=== PATIENT | male | born 1995 | race Caucasian/White ===

== ENCOUNTER → 2016-05-03 | Outpatient (CLI) | payer BC ==
[~2016-05-03] MED LIST: METHACHOLINE KIT (J7674) INH ONE
== END ==
LOC: M CARPUL 03-22 08:00
PROVIDERS: ATTEND Nurse Practitioner Adult Health
DX: R05 Cough (principal)

== ENCOUNTER → 2017-01-08 | Outpatient (REF) | payer BC ==
[2017-01-08 13:10] LABS: MEAN CORPUSCULAR HEMOGLOBIN 30.6 pg (27.0-33.0); MEAN CORPUSCULAR HGB CONC 35.8 g/dl (32.0-36.5); MEAN CORPUSCULAR VOLUME 85.4 fl (80.0-96.0); RED CELL DISTRIBUTION WIDTH 12.1 % (11.5-14.5); WHITE BLOOD COUNT 6.9 K/mm3 (4.0-10.0)
[2017-01-08 13:29] LABS: ALBUMIN 4.2 GM/DL (3.2-5.2); ALBUMIN/GLOBULIN RATIO 1.24 (1.00-1.93); ALKALINE PHOSPHATASE 76 U/L (45-117); ALT/SGPT 53 U/L (12-78); ANION GAP 9 MEQ/L (8-16); AST/SGOT 29 U/L (15-37); BILIRUBIN,TOTAL 0.6 MG/DL (0.2-1.0); BLOOD UREA NITROGEN 15 MG/DL (7-18); CALCIUM LEVEL 9.6 MG/DL (8.5-10.1); CARBON DIOXIDE LEVEL 27 MEQ/L (21-32); CHLORIDE LEVEL 107 MEQ/L (98-107); CREATININE FOR GFR 0.96 MG/DL (0.70-1.30); FREE T4 0.77 NG/DL (0.78-1.33); GLUCOSE, FASTING 75 MG/DL (70-105); POTASSIUM SERUM 4.7 MEQ/L (3.5-5.1); SODIUM LEVEL 143 MEQ/L (136-145); TOTAL PROTEIN 7.6 GM/DL (6.4-8.2)
[2017-01-10 00:06] LABS: Lyme Disease IgG/IgM Antibodie <0.91 ISR (0.00-0.90); Lyme Disease IgM Ab Quantitati <0.80 index (0.00-0.79)
== END ==
LOC: M SFHCPLAZ 11:40
PROVIDERS: ATTEND Nurse Practitioner Adult Health
DX: Z00.00 Encounter for general adult medical examination without abnormal findings (principal); M25.50 Pain in unspecified joint

== ENCOUNTER 2019-09-19 16:03 | Emergency (ER) | payer OTHER, BC ==
[~2019-09-19] VITALS: Ht 180.3 cm; Wt 122.7 kg
[2019-09-19 16:04] VITALS: BP 152/84
[2019-09-19] MEDS ORDERED: BOOSTRIX/ADACEL VACCINE (DIPHTH/PERTUSS/ACELL/TETANUS) 0.5ML SYR IM ONE (17:00)
[2019-09-19] MEDS ORDERED: DERMABOND TOPICAL SKIN ADHESIVE TOP ONE (18:15)
== END 2019-09-19 18:08 | disposition home or self-care (01) ==
LOC: M ED 16:03
DX: S01.112A Laceration without foreign body of left eyelid and periocular area, initial encounter (principal); W22.8XXA Striking against or struck by other objects, initial encounter; Y92.89 Other specified places as the place of occurrence of the external cause; Y93.89 Activity, other specified; Y99.0 Civilian activity done for income or pay; F17.210 Nicotine dependence, cigarettes, uncomplicated; Z23 Encounter for immunization

== ENCOUNTER → 2020-12-23 | Outpatient (CLI) | payer BC ==
[~2020-12-23] MED LIST changes: +AUGM875T28 PO; +AZIT-12 PO; +KETO10TAB PO; -METHACHOLINE KIT (J7674) INH ONE; +PRED20TA PO
[2020-12-23 13:59] LABS: BASO # 0.1 10^3/uL (0.0-0.2); BASO % 0.4 % (0.0-1.0); EOS # 0.1 10^3/uL (0.0-0.5); EOS % 1.1 % (0.0-3.0); HEMATOCRIT 49.8 % (42.0-52.0); HEMOGLOBIN 16.9 g/dl (13.5-17.5); LYMPH # 2.9 10^3/uL (1.5-5.0); LYMPH % 25.5 % (24.0-44.0); MEAN CORPUSCULAR HEMOGLOBIN 29.2 pg (27.0-33.0); MEAN CORPUSCULAR HGB CONC 33.9 g/dl (32.0-36.5); MONO # 1.1 10^3/uL (0.0-0.8); MONO % 9.8 % (2.0-8.0); NEUTROPHILS # 7.2 10^3/uL (1.5-8.5); NEUTROPHILS % 62.8 % (36.0-66.0); PLATELET COUNT, AUTOMATED 298 10^3/uL (150-450); RED BLOOD COUNT 5.79 10^6/uL (4.30-6.10); WHITE BLOOD COUNT 11.4 10^3/uL (4.0-10.0)
[2020-12-23 14:24] LABS: ALBUMIN 4.1 GM/DL (3.2-5.2); ALT/SGPT 56 U/L (12-78); BILIRUBIN,TOTAL 0.8 MG/DL (0.2-1.0); BLOOD UREA NITROGEN 11 MG/DL (7-18); CALCIUM LEVEL 9.7 MG/DL (8.5-10.1); CARBON DIOXIDE LEVEL 30 MEQ/L (21-32); CHLORIDE LEVEL 106 MEQ/L (98-107); CREATININE FOR GFR 0.99 MG/DL (0.70-1.30); GLOMERULAR FILTRATION RATE > 60.0 (>60); GLUCOSE, FASTING 92 MG/DL (70-100); POTASSIUM SERUM 4.5 MEQ/L (3.5-5.1); SODIUM LEVEL 140 MEQ/L (136-145); TOTAL PROTEIN 7.8 GM/DL (6.4-8.2)
--- NOTE | 2020-12-23 19:10 | REP ---
INDICATION: CHEST PAIN ON BREATHING. COMPARISON: Comparison chest x-ray March 21, 2011. TECHNIQUE: Two views.. FINDINGS: The lungs are symmetrically aerated and free of infiltrate. The pleural angles are sharp. Heart size is normal. Pulmonary vasculature is not increased. No significant bony abnormality. IMPRESSION: No active disease. <Electronically signed by Mario Bauer > 12/23/20 [id number]
== END ==
LOC: M PLAIMG 10:42
PROVIDERS: ATTEND Physician Assistant
DX: R07.9 Chest pain, unspecified (principal)

== ENCOUNTER 2020-12-30 19:32 | Emergency (ER) | payer BC ==
[~2020-12-30] VITALS: Ht 180.3 cm; Wt 123.0 kg
[2020-12-30] MEDS ORDERED: PRED20TA PO (19:41)
[2020-12-31 01:02] LABS: BASO % 0.2 % (0.0-1.0); HEMOGLOBIN 16.4 g/dl (13.5-17.5); LYMPH # 1.5 10^3/uL (1.5-5.0); LYMPH % 8.5 % (24.0-44.0); MEAN CORPUSCULAR HEMOGLOBIN 29.4 pg (27.0-33.0); MEAN CORPUSCULAR HGB CONC 34.2 g/dl (32.0-36.5); MEAN CORPUSCULAR VOLUME 86.2 fl (80.0-96.0); MONO # 0.6 10^3/uL (0.0-0.8); MONO % 3.2 % (2.0-8.0); NEUTROPHILS # 15.8 10^3/uL (1.5-8.5); PLATELET COUNT, AUTOMATED 348 10^3/uL (150-450); RED BLOOD COUNT 5.57 10^6/uL (4.30-6.10); WHITE BLOOD COUNT 18.1 10^3/uL (4.0-10.0)
[2020-12-31 01:44] LABS: ALBUMIN 3.8 GM/DL (3.2-5.2); BILIRUBIN,DIRECT 0.2 MG/DL (0.0-0.2); BILIRUBIN,TOTAL 0.7 MG/DL (0.2-1.0); THYROID STIMULATING HORMONE 0.568 uIU/ML (0.358-3.740); TOTAL PROTEIN 7.8 GM/DL (6.4-8.2)
[2020-12-31] MEDS ORDERED: NS 1,000 ML IV ONE (02:15)
[2020-12-31] MEDS ORDERED: KETOROLAC 30 MG/ML 1ML VIAL IV ONE (02:15)
[2020-12-31] MEDS ORDERED: ISOVUE-370 76% 100ML VIAL As Ordered ONE (02:18)
--- NOTE | 2020-12-31 02:22 | REPVR ---
PROCEDURE INFORMATION: Exam: XR Chest Exam date and time: 12/31/20 (1:24am) Age: 25 years old Clinical indication: Dyspnea and cough TECHNIQUE: Imaging protocol: XR of the chest Views: 1 view COMPARISON: Chest films of 12/30/20 (1:38pm) FINDINGS: Lungs: Unremarkable. No consolidation. Pleural spaces: Unremarkable. No pleural effusions. No pneumothorax. Heart/Mediastinum: Unremarkable. No cardiomegaly. Bones/joints: Unremarkable. Other findings: Large patient size. IMPRESSION: No acute findings. Electronically signed by: Sonam Grubbs On 12/31/2020 02:22:16 AM
--- NOTE | 2020-12-31 02:49 | REPVR ---
PROCEDURE INFORMATION: Exam: CTA Chest with Contrast Exam date and time: 12/31/20 (2:24am) Age: 25 years old Clinical indication: Pleuritic chest pain. Possible pulmonary embolism. TECHNIQUE: Imaging protocol: Computed tomographic angiography of the chest with contrast. 3D rendering (Not supervised by radiologist): MIP and/or 3D reconstructed images were created by the technologist. Radiation optimization: All CT scans at this facility use at least one of these dose optimization techniques: automated exposure control; mA and/or kV adjustment per patient size (includes targeted exams where dose is matched to clinical indication); or iterative reconstruction. Contrast material: Iso Contrast volume: 75 ml Contrast route: IV COMPARISON: Portable CXR of 12/31/20 FINDINGS: Pulmonary arteries: Normal. No pulmonary emboli. Aorta: Unremarkable. No aortic aneurysm. No aortic dissection. Lungs: Focal consolidation / atelectasis medially at the right lung base. No masses. Pleural spaces: No pneumothorax. No pleural effusions. Elevation of the right hemidiaphragm. Heart: Unremarkable. No cardiomegaly. No pericardial effusion. Lymph nodes: Unremarkable. No enlarged lymph nodes. Bones/joints: Unremarkable. No acute fracture. Soft tissues: Unremarkable. Upper abdomen: Diffuse fatty infiltration of the liver (partially imaged). IMPRESSION: No filling defects suspicious for pulmonary emboli are seen. There is no CT evidence of aortic dissection nor leakage. No aortic aneurysm is appreciated. Focal consolidation and/or atelectasis medially at the right lung base possible. No significant pleural effusions. Possible focal RLL pneumonia, eg. Electronically signed by: Sonam Grubbs On 12/31/2020 02:48:52 AM
[2020-12-31] MEDS ORDERED: cefTRIAXone SOD 2 GM in D5W MINI-BAG PLUS 50 ML IV ONE (03:10)
[2020-12-31] MEDS ORDERED: AUGM875T28 PO (03:29)
[2020-12-31] MEDS ORDERED: AZIT-12 PO (03:29)
[2020-12-31] MEDS ORDERED: KETO10TAB PO (03:29)
[2020-12-31 04:15] VITALS: BP 127/72
--- NOTE | 2020-12-31 05:33 | ECGEPIP ---
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
== END 2020-12-31 04:26 | disposition home or self-care (01) ==
LOC: M ED 19:32
DX: J18.9 Pneumonia, unspecified organism (principal); F17.200 Nicotine dependence, unspecified, uncomplicated
CPT/HCPCS: 71045; 71275; 80047; 80076; 84443; 84484; 85025; 87798; 93005; 93041; 94760; 96361; 96374; 96375; 99285; J0696; J1885; Q9967

== ENCOUNTER → 2020-12-30 | Outpatient (CLI) | payer BC ==
--- NOTE | 2020-12-30 14:14 | REP ---
INDICATION: COUGH, CHEST PAIN, FEVER. COMPARISON: 12/23/2020 TECHNIQUE: PA and lateral FINDINGS: The superior mediastinal structures are midline. The cardiac silhouette is unremarkable in size, shape, and position. The diaphragmatic surfaces of the lungs are regular, and the costophrenic angles are clear. The pulmonary dunn are clear. The imaged osseous structures are intact. IMPRESSION: There is no acute cardiopulmonary disease. No significant change from the prior exam <Electronically signed by Darrell Gleason > 12/30/20 [id number]
[2020-12-30 15:50] LABS: BASO # 0.1 10^3/uL (0.0-0.2); BASO % 0.4 % (0.0-1.0); EOS # 0.1 10^3/uL (0.0-0.5); EOS % 0.3 % (0.0-3.0); HEMATOCRIT 48.1 % (42.0-52.0); HEMOGLOBIN 16.4 g/dl (13.5-17.5); LYMPH # 2.1 10^3/uL (1.5-5.0); LYMPH % 12.9 % (24.0-44.0); MEAN CORPUSCULAR HEMOGLOBIN 29.8 pg (27.0-33.0); MEAN CORPUSCULAR HGB CONC 34.1 g/dl (32.0-36.5); MEAN CORPUSCULAR VOLUME 87.3 fl (80.0-96.0); MONO # 1.8 10^3/uL (0.0-0.8); MONO % 11.3 % (2.0-8.0); PLATELET COUNT, AUTOMATED 340 10^3/uL (150-450); RED BLOOD COUNT 5.51 10^6/uL (4.30-6.10); WHITE BLOOD COUNT 16.2 10^3/uL (4.0-10.0)
[2020-12-30 15:54] LABS: ALBUMIN 3.9 GM/DL (3.2-5.2); ALT/SGPT 68 U/L (12-78); BLOOD UREA NITROGEN 12 MG/DL (7-18); CALCIUM LEVEL 9.3 MG/DL (8.5-10.1); CARBON DIOXIDE LEVEL 31 MEQ/L (21-32); CHLORIDE LEVEL 102 MEQ/L (98-107); CREATININE FOR GFR 0.97 MG/DL (0.70-1.30); GLOMERULAR FILTRATION RATE > 60.0 (>60); GLUCOSE, FASTING 94 MG/DL (70-100); POTASSIUM SERUM 4.4 MEQ/L (3.5-5.1); SODIUM LEVEL 137 MEQ/L (136-145); TOTAL PROTEIN 7.4 GM/DL (6.4-8.2)
== END ==
LOC: M WUC 13:10
PROVIDERS: ATTEND Physician Assistant
DX: R07.1 Chest pain on breathing (principal)

== ENCOUNTER → 2021-02-02 | Outpatient (CLI) | payer BC ==
[2021-02-02 14:26] LABS: HEPATITIS B SURFACE ANTIGEN NEGATIVE (NEGATIVE); HEPATITIS C VIRUS ABY INDEX 0.1 INDEX (<0.8)
== END ==
LOC: M PLALAB 11:31
PROVIDERS: ATTEND Nurse Practitioner Adult Health
DX: R79.89 Other specified abnormal findings of blood chemistry (principal)

== ENCOUNTER → 2021-02-25 | Outpatient (CLI) | payer BC ==
--- NOTE | 2021-02-28 18:10 | SLEEPCENT ---
DATE: 02/25/2021 ORDERED BY: Celia Acuna MD Nocturnal polysomnography was performed for evaluation of sleep physiology in this patient with a history of excessive somnolence, irregular breathing and nonrestorative sleep. Eight hours and 46 minutes of data were reviewed. There were 461.5 minutes of sleep identified. Sleep latency was prolonged at 47 minutes. REM latency was prolonged at 157 minutes. Sleep architecture initially fragmented did improve and there were four REM cycles noted. Overall sleep efficiency was 88.7%. Overall there was a reduction in REM time and an increase in stage II and III. The electrocardiogram showed a sinus rhythm with an average heart rate of 65 beats per minute. Rate ranged 55-100. EEG showed no focal events. There were normal waveforms for wake and sleep. There were 117 respiratory events identified of 10 seconds in duration or greater for an apnea-hypopnea index of 15.2. The events were obstructive, not exclusive to sleep stage nor body position though they were more frequent in the supine posture. Arousals from respiratory events occurred 3.1 times per hour. However, oxygen desaturations were seen into the 80s. There was some minor activity in the EMG leads from the legs. Limb movement arousal index was 4.4. IMPRESSION: Obstructive sleep apnea syndrome (G47.33). Apnea-hypopnea index 15.2. RECOMMENDATION: The patient should be encouraged to return to [facility] for [facility]. In the interim, alcohol and sedative avoidance should be practiced and caution exercised during the operation of motor vehicles. cc: DU ALICEA M.D. FIDELIA
== END ==
LOC: M SLEEP 20:00
PROVIDERS: ATTEND Internal Medicine Pulmonary Disease
DX: G47.33 Obstructive sleep apnea (adult) (pediatric) (principal)

== ENCOUNTER → 2021-03-11 | Outpatient (CLI) | payer BC ==
[~2021-03-11] MED LIST changes: +ISOVUE-370 76% 100ML VIAL As Ordered ONE
--- NOTE | 2021-03-11 09:11 | REP ---
INDICATION: ABN FIND OF LUNG FIELD CT 1ST XR 2ND COMPARISON: 01/29/2021 TECHNIQUE: Axial contrast enhanced images from the thoracic inlet to the upper abdomen with coronal and sagittal reformations using 75 ml Isovue 370 intravenous contrast material. This CT examination was performed using the following dose reduction techniques: Automated exposure control, adjustment of mA and/or kv according to the patient's size, and use of iterative reconstruction technique. FINDINGS: The bilateral lung dunn are well aerated. There is a small residual bilobed area of parenchymal consolidation along the medial aspect of the right lung base (images 69-86) which is considerably decreased in size from prior examination and may represent resolving atelectasis. No further acute consolidation, suspicious nodule or mass. No effusion. No pneumothorax. Tracheobronchial tree is patent. No obvious adenopathy. The mediastinum demonstrates normal thoracic aorta, pulmonary vasculature, and heart/pericardium. A small hiatal hernia at the gastroesophageal junction is suggested. Limited upper abdomen demonstrates normal bilateral adrenal glands and diffuse hepatosteatosis. Musculoskeletal structures are intact. IMPRESSION: 1. Small residual parenchymal consolidation along the medial right lower lobe significantly improved from prior examination. Consider continued follow-up at 6 months to confirm complete resolution. 2. No acute obvious active mediastinal or pleuroparenchymal process otherwise appreciated. <Electronically signed by Lukas Franco > 03/11/21 [id number]
--- NOTE | 2021-03-11 16:31 | REP ---
INDICATION: ABNORMAL FINDING OF LUNG FIELD, DIS OR VARUN. COMPARISON: None TECHNIQUE: This procedure was performed by Moon Hernández [facility], under the direct supervision of Dr. Denise. Images were reviewed with Dr. Denise prior to dictation. While the patient was standing in the AP and lateral positions fluoroscopy was utilized while the patient did normal breathing, deep breathing and continuous sniffs. FINDINGS: The right hemidiaphragm does move but appears somewhat hypotonic in its motion. The left hemidiaphragm demonstrates normal amplitude and direction of motion with inspiration, expiration, and deep breathing. IMPRESSION: The right hemidiaphragm does move but appears somewhat hypotonic in its motion. The left hemidiaphragm demonstrates normal amplitude and direction of motion with inspiration expiration and deep breathing. 0.8 minutes of fluoroscopy time was utilized for this procedure. Some fluoroscopic images are performed with last image hold technology. These images require no additional radiation. <Electronically signed by Moon Hernández > 03/11/21 1604 <Electronically signed by Ke Denise > 03/11/21 [id number]
== END ==
LOC: M RAD 07:52
PROVIDERS: ATTEND Internal Medicine Pulmonary Disease
DX: R91.8 Other nonspecific abnormal finding of lung field (principal)

== ENCOUNTER → 2021-04-08 | Outpatient (CLI) | payer BC ==
[~2021-04-08] MED LIST changes: -ISOVUE-370 76% 100ML VIAL As Ordered ONE
== END ==
LOC: M SLEEP 20:00
PROVIDERS: ATTEND Internal Medicine Pulmonary Disease
DX: G47.33 Obstructive sleep apnea (adult) (pediatric) (principal)

== ENCOUNTER → 2023-08-31 | Outpatient (CLI) | payer OTHER ==
[2023-08-31 10:19] LABS: BASO % 0.7 % (0.0-1.0); EOS % 0.7 % (0.0-3.0); HEMOGLOBIN 16.5 g/dl (13.5-17.5); LYMPH # 1.5 10^3/uL (1.5-5.0); LYMPH % 33.8 % (24.0-44.0); MEAN CORPUSCULAR HEMOGLOBIN 29.3 pg (27.0-33.0); MEAN CORPUSCULAR HGB CONC 34.4 g/dl (32.0-36.5); MEAN CORPUSCULAR VOLUME 85.3 fl (80.0-96.0); MONO # 0.6 10^3/uL (0.0-0.8); MONO % 12.8 % (2.0-8.0); NEUTROPHILS # 2.3 10^3/uL (1.5-8.5); NEUTROPHILS % 51.5 % (36.0-66.0); PLATELET COUNT, AUTOMATED 187 10^3/uL (150-450); RED BLOOD COUNT 5.63 10^6/uL (4.30-6.10); WHITE BLOOD COUNT 4.4 10^3/uL (4.0-10.0)
[2023-08-31 10:48] LABS: ALBUMIN 3.8 G/DL (3.2-5.2); ALKALINE PHOSPHATASE 96 U/L (46-116); ALT/SGPT 109 U/L (7.0-40); AST/SGOT 83 U/L (<34); BILIRUBIN,TOTAL 0.6 MG/DL (0.3-1.2); BLOOD UREA NITROGEN 12 MG/DL (9-23); CALCIUM LEVEL 9.1 MG/DL (8.5-10.1); CARBON DIOXIDE LEVEL 28 MMOL/L (20-31); CHLORIDE LEVEL 105 MMOL/L (98-107); CREATININE FOR GFR 1.02 MG/DL (0.70-1.30); GLOMERULAR FILTRATION RATE > 60.0 (>60); GLUCOSE, FASTING 99 MG/DL (60-100); POTASSIUM SERUM 3.7 MMOL/L (3.5-5.1); SODIUM LEVEL 140 MMOL/L (136-145); TOTAL PROTEIN 6.9 G/DL (5.7-8.2)
== END ==
LOC: M WUC 08:44
PROVIDERS: ATTEND Student in an Organized Health Care Education/Training Program
DX: R07.1 Chest pain on breathing (principal)

== ENCOUNTER → 2023-09-03 | Outpatient (CLI) | payer OTHER | LOC: M PLAIMG 11:47 | PROVIDERS: ATTEND Nurse Practitioner Adult Health | DX: M54.50 Low back pain, unspecified (principal) ==

== ENCOUNTER → 2023-10-05 | Outpatient (CLI) | payer OTHER ==
[~2023-10-05] MED LIST changes: +ISOVUE-370 76% 100ML VIAL ONE
== END ==
LOC: M PLAIMG 07:40
PROVIDERS: ATTEND Nurse Practitioner Adult Health
DX: R07.89 Other chest pain (principal); K76.0 Fatty (change of) liver, not elsewhere classified
CPT/HCPCS: 71260; Q9967

== ENCOUNTER → 2023-10-05 | Outpatient (CLI) | payer OTHER ==
[~2023-10-05] MED LIST changes: -ISOVUE-370 76% 100ML VIAL ONE
== END ==
LOC: M WHC 07:39
PROVIDERS: ATTEND Nurse Practitioner Adult Health
DX: R74.8 Abnormal levels of other serum enzymes (principal); K76.0 Fatty (change of) liver, not elsewhere classified

== ENCOUNTER → 2023-11-05 | Outpatient (CLI) | payer OTHER ==
[2023-11-05 11:32] LABS: ALKALINE PHOSPHATASE 83 U/L (46-116); ALT/SGPT 69 U/L (7.0-40); AST/SGOT 31 U/L (<34); BILIRUBIN,TOTAL 0.5 MG/DL (0.3-1.2); BLOOD UREA NITROGEN 18 MG/DL (9-23); CALCIUM LEVEL 9.3 MG/DL (8.5-10.1); CARBON DIOXIDE LEVEL 29 MMOL/L (20-31); CHLORIDE LEVEL 107 MMOL/L (98-107); CREATININE FOR GFR 0.89 MG/DL (0.70-1.30); GLOMERULAR FILTRATION RATE > 60.0 (>60); GLUCOSE, FASTING 95 MG/DL (60-100); POTASSIUM SERUM 4.2 MMOL/L (3.5-5.1); SODIUM LEVEL 142 MMOL/L (136-145); TOTAL PROTEIN 7.1 G/DL (5.7-8.2)
== END ==
LOC: M PLALAB 07:58
PROVIDERS: ATTEND Nurse Practitioner Adult Health
DX: K76.0 Fatty (change of) liver, not elsewhere classified (principal)

== ENCOUNTER 2024-02-15 15:25 | Emergency (ER) | payer OTHER ==
[~2024-02-15] VITALS: Ht 180.3 cm; Wt 134.1 kg
[2024-02-15 17:32] LABS: BASO # 0.1 10^3/uL (0.0-0.2); BASO % 0.6 % (0.0-1.0); EOS # 0.1 10^3/uL (0.0-0.5); EOS % 0.9 % (0.0-3.0); HEMATOCRIT 47.3 % (42.0-52.0); HEMOGLOBIN 16.6 g/dl (13.5-17.5); LYMPH # 2.8 10^3/uL (1.5-5.0); MEAN CORPUSCULAR HEMOGLOBIN 29.6 pg (27.0-33.0); MEAN CORPUSCULAR HGB CONC 35.1 g/dl (32.0-36.5); MEAN CORPUSCULAR VOLUME 84.5 fl (80.0-96.0); MONO # 0.8 10^3/uL (0.0-0.8); MONO % 8.9 % (2.0-8.0); NEUTROPHILS # 4.8 10^3/uL (1.5-8.5); NEUTROPHILS % 56.4 % (36.0-66.0); PLATELET COUNT, AUTOMATED 287 10^3/uL (150-450); WHITE BLOOD COUNT 8.5 10^3/uL (4.0-10.0)
[2024-02-15 18:00] LABS: LIPASE 41 U/L (12-53)
[2024-02-15 18:02] LABS: ALBUMIN 4.1 G/DL (3.2-5.2); ALKALINE PHOSPHATASE 78 U/L (40-129); ALT/SGPT 42 U/L (7.0-40); AST/SGOT 27 U/L (<34); BILIRUBIN,DIRECT 0.1 MG/DL (<0.4); BILIRUBIN,TOTAL 0.6 MG/DL (0.3-1.2); BLOOD UREA NITROGEN 16 MG/DL (9-23); CALCIUM LEVEL 9.8 MG/DL (8.5-10.1); CARBON DIOXIDE LEVEL 29 MMOL/L (20-31); CHLORIDE LEVEL 108 MMOL/L (98-107); CREATININE FOR GFR 0.98 MG/DL (0.70-1.30); GLOMERULAR FILTRATION RATE > 60.0 (>60); GLUCOSE, FASTING 88 MG/DL (60-100); POTASSIUM SERUM 4.2 MMOL/L (3.5-5.1); SODIUM LEVEL 141 MMOL/L (136-145); TOTAL PROTEIN 7.5 G/DL (5.7-8.2)
[2024-02-15 18:26] LABS: CK-MB VALUE MASS < 1.0 NG/ML (<3.6)
[2024-02-15 18:30] LABS: THYROID STIMULATING HORMONE 1.284 uIU/ML (0.55-4.78)
[2024-02-15 18:42] LABS: CPK CREATINE PHOSPHOKINASE 295 U/L (46-171); MB/CK RELATIVE INDEX 0.33 (< OR =4)
[2024-02-15] MEDS ORDERED: KETOROLAC 30 MG/ML 1ML VIAL IV ONE (19:45)
[2024-02-15] MEDS: KETOROLAC 60MG 2ML VIAL IM ONE (19:53)
[2024-02-15 20:22] LABS: CK-MB VALUE MASS < 1.0 NG/ML (<3.6)
[2024-02-15 20:24] LABS: CPK CREATINE PHOSPHOKINASE 278 U/L (46-171); MB/CK RELATIVE INDEX 0.35 (< OR =4)
[2024-02-15] MEDS ORDERED: IBUP-1022 PO (21:07)
[2024-02-15 21:13] VITALS: BP 134/84; TEMP 98.5; O2SAT 96
== END 2024-02-15 21:15 | disposition home or self-care (01) ==
LOC: EDBD 15:25 → M ED 15:25
DX: R07.89 Other chest pain (principal); I49.8 Other specified cardiac arrhythmias; F10.10 Alcohol abuse, uncomplicated; Z87.891 Personal history of nicotine dependence; Z79.1 Long term (current) use of non-steroidal anti-inflammatories (NSAID); Z79.2 Long term (current) use of antibiotics
CPT/HCPCS: 71046; 80048; 80076; 82550; 82553; 83690; 84439; 84443; 84484; 85025; 85379; 93005; 96372; 99284; J1885

== ENCOUNTER → 2024-03-12 | Outpatient (CLI) | payer OTHER ==
[~2024-03-12] MED LIST changes: +IBUP-1022 PO
== END ==
LOC: M WUC 09:46
PROVIDERS: ATTEND Nurse Practitioner Family
DX: R05.9 Cough, unspecified (principal)

== ENCOUNTER → 2024-04-10 | Outpatient (REF) | payer OTHER | LOC: M SFHCPLAZ 11:46 | PROVIDERS: ATTEND Student in an Organized Health Care Education/Training Program | DX: K21.9 Gastro-esophageal reflux disease without esophagitis (principal); Z87.01 Personal history of pneumonia (recurrent); Z53.9 Procedure and treatment not carried out, unspecified reason ==

== ENCOUNTER → 2024-05-01 | Outpatient (REF) | payer OTHER | LOC: M SFHCPLAZ 10:11 | PROVIDERS: ATTEND Student in an Organized Health Care Education/Training Program | DX: K21.9 Gastro-esophageal reflux disease without esophagitis (principal) ==

== ENCOUNTER → 2024-10-27 | Outpatient (CLI) | payer OTHER ==
[2024-10-27 14:29] LABS: PLATELET COUNT, AUTOMATED 289 10^3/uL (150-450)
[2024-10-27 15:00] LABS: ALT/SGPT 38 U/L (7.0-40); AST/SGOT 33 U/L (<34); CALCIUM LEVEL 10.0 MG/DL (8.5-10.1); CARBON DIOXIDE LEVEL 29 MMOL/L (20-31); CHLORIDE LEVEL 105 MMOL/L (98-107); CREATININE FOR GFR 0.97 MG/DL (0.70-1.30); GLOMERULAR FILTRATION RATE > 90.0 (>60); POTASSIUM SERUM 4.5 MMOL/L (3.5-5.1); SODIUM LEVEL 145 MMOL/L (136-145)
[2024-10-27 15:02] LABS: FREE T4 0.95 NG/DL (0.89-1.76)
[2024-10-27 15:18] LABS: ESTIMATED AVERAGE GLUCOSE 97.0 MG/DL (60-110)
== END ==
LOC: M PLALAB 11:20
PROVIDERS: ATTEND Nurse Practitioner Adult Health
DX: Z00.00 Encounter for general adult medical examination without abnormal findings (principal)

== ENCOUNTER → 2024-12-04 | Outpatient (CLI) | payer OTHER ==
[2024-12-04 14:57] LABS: BASO # 0.0 10^3/uL (0.0-0.2); BASO % 0.9 % (0.0-1.0); EOS # 0.0 10^3/uL (0.0-0.5); EOS % 0.5 % (0.0-3.0); LYMPH # 1.3 10^3/uL (1.5-5.0); LYMPH % 29.7 % (24.0-44.0); MONO # 0.5 10^3/uL (0.0-0.8); MONO % 11.2 % (2.0-8.0); NEUTROPHILS # 2.4 10^3/uL (1.5-8.5); NEUTROPHILS % 57.2 % (36.0-66.0); PLATELET COUNT, AUTOMATED 246 10^3/uL (150-450)
[2024-12-04 15:02] LABS: ALT/SGPT 63 U/L (7.0-40); AST/SGOT 59 U/L (<34); C REACTIVE PROTEIN QUANTITATIV 4.55 MG/DL (<1.0); CALCIUM LEVEL 9.5 MG/DL (8.5-10.1); CARBON DIOXIDE LEVEL 28 MMOL/L (20-31); CHLORIDE LEVEL 105 MMOL/L (98-107); CREATININE FOR GFR 0.91 MG/DL (0.70-1.30); GLOMERULAR FILTRATION RATE > 90.0 (>60); POTASSIUM SERUM 4.0 MMOL/L (3.5-5.1); SODIUM LEVEL 144 MMOL/L (136-145)
[2024-12-04 15:06] LABS: ERYTHROCYTE SEDIMENTATION RATE 24 mm/hr (0-15)
[2024-12-08 16:22] LABS: LYME TOTAL ANTIBODY CIA <= 0.90 Index (<=0.90)
== END ==
LOC: M WUC 10:57
PROVIDERS: ATTEND Nurse Practitioner Family
DX: M54.50 Low back pain, unspecified (principal); R53.83 Other fatigue; R50.9 Fever, unspecified